=== PATIENT | male | born 1975 | race African-American/Black ===

== ENCOUNTER 2017-07-31 08:43 | Emergency (ER) | payer BC, SELFPAY ==
[2017-07-31] MEDS ORDERED: Sulfameth/Trimethoprim DS 800-160mg TAB ONE (09:02)
== END 2017-07-31 09:04 | disposition home or self-care (01) ==
LOC: NAV ERS 08:43
DX: L03.811 Cellulitis of head [any part, except face] (principal)
CPT/HCPCS: 99283

== ENCOUNTER 2017-12-05 08:33 | Emergency (ER) | payer SELFPAY ==
[2017-12-05] MEDS ORDERED: Cyclobenzaprine 10 MG TAB ONE (08:52)
[2017-12-05] MEDS ORDERED: Ibuprofen 800 MG TAB ONE (08:52)
== END 2017-12-05 09:44 | disposition home or self-care (01) ==
LOC: NAV ERS 08:33
DX: S39.92XA Unspecified injury of lower back, initial encounter (principal); I10 Essential (primary) hypertension; F17.220 Nicotine dependence, chewing tobacco, uncomplicated; X50.0XXA Overexertion from strenuous movement or load, initial encounter; Y92.59 Other trade areas as the place of occurrence of the external cause; Y99.0 Civilian activity done for income or pay
CPT/HCPCS: 99283

== ENCOUNTER 2018-02-19 18:37 | Emergency (ER) | payer BC, SELFPAY ==
[2018-02-19] MEDS ORDERED: Aspirin 325 MG TAB ONE (18:58)
[2018-02-19 19:00] LABS: #Basophils 0.1 thou/uL (0.0-0.2); #Eosinphils 0.1 thou/uL (0.0-0.7); #Lymphocytes 3.7 thou/uL (1.20-3.40); #Monocytes 0.7 thou/uL (0.11-0.59); #Neutrophils 2.9 thou/uL (1.40-6.50); %Basophils 1.3 % (0.0-1.0); %Lymphocytes 49.3 % (21.0-51.0); %Monocytes 9.6 % (0.0-10.0); %Neutrophils 38.9 % (42.0-75.0); Hemoglobin 15.5 g/dL (14.0-18.0); Mean Corpuscular Volume 90.9 fl (80.0-94.0); Mean Platelet Volume 7.1 fL (7.4-10.4); Platelet Count 306 thou/uL (130-400); RBC Distribution Width 12.1 % (11.5-14.5); Red Blood Cell (RBC) Count 5.17 mill/uL (4.70-6.10); White Blood Cell (WBC) Count 7.5 thou/uL (4.8-10.8)
[2018-02-19 19:11] LABS: ALT (SGPT) 47 U/L (8-55); AST (SGOT) 36 U/L (5-34); Albumin 4.1 g/dL (3.5-5.0); Alkaline Phosphatase 95 U/L (40-150); Anion Gap 15 mmol/L (10-20); BUN (Urea Nitrogen) 7 mg/dL (8.9-20.6); Bilirubin, Total 0.5 mg/dL (0.2-1.2); Calc. Creatinine Clearance 0 mL/min (70-130); Calcium 9.7 mg/dL (7.8-10.44); Carbon Dioxide 25 mmol/L (22-29); Chloride 104 mmol/L (98-107); Estimated GFR-MDRD Greater than 90; Globulin 3.5 g/dL (2.4-3.5); Glucose 102 mg/dL (70-105); Protein, Total 7.6 g/dL (6.0-8.3); Sodium 140 mmol/L (136-145)
[2018-02-19 19:15] LABS: CKMB 0.8 ng/mL (0-6.6); Troponin I Less than 0.010 ng/mL (< 0.028)
--- NOTE | 2018-02-19 20:21 | RAD ---
TWO VIEW CHEST SERIES: 02/19/18 No prior comparison. CLINICAL HISTORY: Chest pain. FINDINGS: There is a focal, nodular hyperdensity of the inferolateral left hemithorax. Right lung is clear. The cardiac silhouette is normal in size. Osseous structures are intact. IMPRESSION: Hyperdense nodularity of the inferolateral left hemithorax. This could be on the basis of granulomato us calcification. Correlation with prior chest radiographs would prove useful. Otherwise recommend fo llowup chest radiograph in three months to evaluate for stability. Code LN POS: [facility]
== END 2018-02-19 19:28 | disposition home or self-care (01) ==
LOC: NAV ERS 18:37
DX: R07.9 Chest pain, unspecified (principal); I10 Essential (primary) hypertension; F17.220 Nicotine dependence, chewing tobacco, uncomplicated; Z79.899 Other long term (current) drug therapy
CPT/HCPCS: 36415; 71046; 80053; 82553; 84484; 85025; 93005

== ENCOUNTER 2018-02-25 09:04 | Outpatient (CLI) | payer BC ==
--- NOTE | 2018-02-25 12:13 | ULT ---
ABDOMINAL ULTRASOUND: HISTORY: Elevated LFTs. FINDINGS: Real-time imaging of the upper abdomen demonstrates a normal-appearing gallbladder. The common duct is 3 mm. The liver measures 14 cm in length and shows some increased echogenicity suggesting some di ffuse fatty change. The spleen measures 8 cm. Right and left kidneys are normal in size and not obstructed. Pancreas is obscured as are portions o f the abdominal aorta and IVC, but they appear fairly unremarkable. IMPRESSION: Fatty changes of the liver. POS: [facility]
== END 2018-02-25 09:05 | disposition home or self-care (01) ==
LOC: NAV ULT 09:04
PROVIDERS: ATTEND Nurse Practitioner Family
DX: R79.89 Other specified abnormal findings of blood chemistry (principal); K76.0 Fatty (change of) liver, not elsewhere classified
CPT/HCPCS: 76700

== ENCOUNTER 2018-11-14 17:12 | Emergency (ER) | payer BC, OTHER, SELFPAY ==
[2018-11-14 18:23] LABS: ALT (SGPT) 74 U/L (8-55); AST (SGOT) 66 U/L (5-34); Albumin 4.4 g/dL (3.5-5.0); Alkaline Phosphatase 102 U/L (40-150); Anion Gap 15 mmol/L (10-20); BUN (Urea Nitrogen) 11 mg/dL (8.9-20.6); Bilirubin, Total 0.5 mg/dL (0.2-1.2); CK (CPK) 179 U/L (30-200); Calc. Creatinine Clearance 0 mL/min (70-130); Carbon Dioxide 25 mmol/L (22-29); Chloride 103 mmol/L (98-107); Estimated GFR-MDRD Greater than 90; Globulin 3.5 g/dL (2.4-3.5); Glucose 112 mg/dL (70-105); Potassium 4.4 mmol/L (3.5-5.1); Protein, Total 7.9 g/dL (6.0-8.3); Sodium 139 mmol/L (136-145)
[2018-11-14 18:29] LABS: #Basophils 0.1 thou/uL (0.0-0.2); #Eosinphils 0.1 thou/uL (0.0-0.7); #Lymphocytes 2.4 thou/uL (1.20-3.40); #Monocytes 0.5 thou/uL (0.11-0.59); #Neutrophils 3.4 thou/uL (1.40-6.50); %Basophils 1.5 % (0.0-1.0); %Eosinophils 1.3 % (0.0-10.0); %Lymphocytes 37.1 % (21.0-51.0); %Monocytes 7.9 % (0.0-10.0); %Neutrophils 52.2 % (42.0-75.0); Hemoglobin 16.5 g/dL (14.0-18.0); Mean Corpuscular HGB CONC 32.4 g/dL (32.0-36.0); Mean Corpuscular Hemoglobin 30.5 pg (27.0-31.0); Platelet Count 251 thou/uL (130-400); RBC Distribution Width 11.9 % (11.5-14.5); Red Blood Cell (RBC) Count 5.42 mill/uL (4.70-6.10); White Blood Cell (WBC) Count 6.6 thou/uL (4.8-10.8)
--- NOTE | 2018-11-14 19:18 | RAD ---
CHEST ONE VIEW: 11/14/18 HISTORY: 43-year-old male with history of chest pain. Heart size is normal. Left lower lobe old granulomatous disease. No confluent pneumonia, overt edema, or pleural effusion. IMPRESSION: Old granulomatous disease. No acute intrathoracic disease. POS: [facility]
== END 2018-11-14 18:40 | disposition home or self-care (01) ==
LOC: NAV ERS 17:12
DX: R07.9 Chest pain, unspecified (principal); I10 Essential (primary) hypertension; F17.210 Nicotine dependence, cigarettes, uncomplicated; Z79.899 Other long term (current) drug therapy
CPT/HCPCS: 71045; 80053; 82550; 84484; 85025; 93005

== ENCOUNTER 2023-11-08 21:17 | Emergency (ER) | payer BC, OTHER ==
[~2023-11-08 21:17] MED LIST: Iopamidol 370 76% 100 ML VIAL ONE
[2023-11-08 21:54] LABS: #Basophils 0.1 thou/uL (0.0-0.2); #Lymphocytes 2.4 thou/uL (1.20-3.40); #Monocytes 0.3 thou/uL (0.11-0.59); #Neutrophils 2.7 thou/uL (1.40-6.50); %Basophils 1.1 % (0.0-1.0); %Eosinophils 0.8 % (0.0-10.0); %Lymphocytes 43.7 % (21.0-51.0); %Monocytes 5.5 % (0.0-10.0); %Neutrophils 48.8 % (42.0-75.0); Hematocrit 58.1 % (42.0-52.0); Hemoglobin 19.5 g/dL (14.0-18.0); Mean Corpuscular HGB CONC 33.5 g/dL (32.0-36.0); Mean Corpuscular Hemoglobin 32.2 pg (27.0-31.0); Mean Corpuscular Volume 96.1 fl (78.0-98.0); Mean Platelet Volume 6.5 fL (7.4-10.4); Platelet Count 236 10x3/uL (130-400); RBC Distribution Width 12.1 % (11.5-14.5); Red Blood Cell (RBC) Count 6.05 mill/uL (4.70-6.10); White Blood Cell (WBC) Count 5.6 10x3/uL (4.8-10.8)
[2023-11-08 22:01] LABS: Prothrombin Time 13.9 sec (12.0-14.7)
[2023-11-08 22:02] LABS: PTT 30.5 sec (22.9-36.1)
[2023-11-08 22:08] LABS: ALT (SGPT) 45 U/L (8-55); AST (SGOT) 63 U/L (5-34); Albumin 4.1 g/dL (3.5-5.0); Alcohol 198.4 mg/dL (Less than 10); Alkaline Phosphatase 171 U/L (40-110); Anion Gap 18 mmol/L (10-20); BUN (Urea Nitrogen) 5 mg/dL (8.9-20.6); Bilirubin, Total 0.5 mg/dL (0.2-1.2); Calc. Creatinine Clearance 0 mL/min (70-130); Calcium 9.1 mg/dL (7.8-10.44); Carbon Dioxide 22 mmol/L (22-29); Chloride 104 mmol/L (98-107); Estimated GFR 93; Globulin 4.5 g/dL (2.4-3.5); Glucose 122 mg/dL (70-105); Potassium 4.6 mmol/L (3.5-5.1); Protein, Total 8.6 g/dL (6.0-8.3); Sodium 139 mmol/L (136-145)
[2023-11-08] MEDS ORDERED: Aspirin 325 MG TAB ONE (22:15)
[2023-11-08 22:53] LABS: Bilirubin Negative (Negative); Blood, Urine Negative (Negative); Clarity Clear (Clear); Glucose, Urine (Dipstick) Negative (Negative); Ketone, Urine Negative (Negative); Leukocyte Negative (Negative); Nitrite Negative (Negative); Protein, Urine (Dipstick) Negative (Neg-Trace); Urobilinogen 0.2 mg/dL (Less than 2); pH, Urine 5.5 (5.0-9.0)
[2023-11-08] MEDS ORDERED: Sodium Chloride 0.9% 1,000 ML ONE (22:54)
[2023-11-08 22:55] LABS: Bacteria/HPF None Seen HPF (None Seen); CAUTI Indications for Culture Dysuria,urgency,freq; RBC/HPF None Seen HPF (0-3); Squamous Epithelial None Seen HPF (0-3); Urine Culture Reflex No No; WBC/HPF None Seen HPF (0-3)
[2023-11-08 23:02] LABS: Amphetamine Not Detected (NotDetected); Barbiturates Screen Not Detected (NotDetected); Benzodiazepine Screen Not Detected (NotDetected); Cocaine Metabolite Screen Not Detected (NotDetected); Methadone Not Detected (NotDetected); Methamphetamine Not Detected (NotDetected); Opiate Screen Not Detected (NotDetected); Oxycodone Screen Not Detected (NotDetected); Phencyclidine (PCP) Not Detected (NotDetected); THC/Cannabinoid Screen Not Detected (NotDetected); Tricyclic Screen Not Detected (NotDetected)
== END 2023-11-08 23:19 | disposition short-term general hospital (02) ==
LOC: NAV ERS 21:17
DX: R53.1 Weakness (principal); R78.0 Finding of alcohol in blood; F17.220 Nicotine dependence, chewing tobacco, uncomplicated
CPT/HCPCS: 36416; 70450; 70496; 80053; 80306; 80307; 81001; 85025; 85610; 85730; 93005; J7050; Q9967